=== PATIENT | female | born 1950 | race Caucasian/White ===

== ENCOUNTER → 2019-01-02 | Outpatient (CLI) | payer MEDICARE, OTHER ==
--- NOTE | 2019-01-03 08:37 | Diagnostic Imaging Report ---
PET/CT INDICATION: Lung mass. TECHNIQUE: PET/CT imaging was obtained from the base of the skull through the pelvis after the administration of 12.49 mCi of F-[address] imaging was utilized for localization and attenuation correction purposes. The low energy CT utilized for attenuation correction is not considered to be of high enough spatial resolution to allow in and of itself a separate anatomical analysis. The patient's height is 5' 3" and weight 79 pounds. The blood glucose level was 110. There are no prior studies available for comparison. The CT images do show a spiculated mass in the right lower lobe measuring 8.4 x 12.0 mm. This mass does not show any hypermetabolic activity however. The maximum SUV is only 0.8. Even so, the CT appearance is worrisome for neoplasm. It is my understanding that the patient has had previous CT chest exams which indicated that this lesion was stable. If those exams are available they would be helpful for comparison. Otherwise, a CT guided biopsy should be considered. If there is no intervention at this time, then a short-term (3-6 month) follow-up CT chest exam would be recommended. There is no other hypoechoic metabolic activity to suggest the presence of malignancy. There is a considerable amount of hypermetabolic activity throughout the colon. This is most likely physiologic in nature. There is also physiologic activity in the brain, the kidneys and the bladder. The CT images fail to show any sign of any acute abnormality. The heart is not enlarged but there are coronary calcifications. There is a small amount of fluid in the right maxillary antrum. The sinuses are otherwise clear. 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 A vena cava filter is also noted. IMPRESSION: 1. The spiculated mass in the right lower lobe is not hypermetabolic. Even so, its CT appearance is worrisome for malignancy. Recommendations as above. 2. There is no other hypermetabolic activity to suggest the presence of neoplastic disease. 3. These results were discussed with Dr. KAREN AGARWAL. Dictated by: Dictated on workstation # [id number]
== END ==
LOC: RAD 09:19
PROVIDERS: ATTEND Nurse Practitioner Family
DX: J30.9 Allergic rhinitis, unspecified (principal); R91.8 Other nonspecific abnormal finding of lung field; Z72.0 Tobacco use; Z96.641 Presence of right artificial hip joint